=== PATIENT | female | born 1990 | race Caucasian/White ===

== ENCOUNTER 2025-10-11 19:50 | Emergency (ER) | payer OTHER ==
[~2025-10-11] VITALS: Ht 167.6 cm; Wt 63.5 kg
[2025-10-11 20:18] VITALS: BP 133/82; TEMP 98; O2SAT 98
[2025-10-11] MEDS ORDERED: IBUP-1490 PO (21:06)
[2025-10-11] MEDS ORDERED: LIDO30AD10 TP (21:06)
[2025-10-11] MEDS ORDERED: KETOROLAC TROMETHAMINE 15 MG/ML VIAL ONE (21:15)
[2025-10-11] MEDS: KETOROLAC TROMETHAMINE 15 MG/ML VIAL IM ONE (21:22)
== END 2025-10-11 21:43 | disposition home or self-care (01) ==
LOC: ER 19:57
DX: M79.661 Pain in right lower leg (principal)
CPT/HCPCS: 99283; J1885